=== PATIENT | female | born 1980 | race Caucasian/White ===

== ENCOUNTER 2021-01-29 15:26 | Emergency (ER) | payer BC ==
[2021-01-29 15:55] VITALS: TEMP 97.8; BMI 59.7
[2021-01-29] MEDS ORDERED: SODIUM CHLORIDE 1,000 ML IV STA (17:53)
[2021-01-29] MEDS ORDERED: ACETAMINOPHEN 1000 MG/100 ML VIAL IVPB ONE (17:57)
[2021-01-29] MEDS ORDERED: ACETAMINOPHEN INJECTION 100 ML IVPB ONE (18:10)
[2021-01-29 18:45] LABS: BASO % 0.8 % (0-2.0); EOS % 2.6 % (0-4.5); HEMATOCRIT 37.2 % (32.4-45.2); HEMOGLOBIN 12.2 GM/dL (10.7-15.3); LYMPH % 19.3 % (8-40); MCH 24.2 pg (25.7-33.7); MCHC 32.9 g/dl (32.0-36.0); MEAN CELL VOLUME 73.7 fl (80-96); MEAN PLT VOLUME 8.3 fl (7.5-11.1); MONO % 5.4 % (3.8-10.2); NEUT % 71.9 % (42.8-82.8); PLATELET COUNT 275 10^3/uL (134-434); RBC 5.05 M/mm3 (3.60-5.2); RDW 15.3 % (11.6-15.6); WHITE BLOOD COUNT 6.9 K/mm3 (4.0-10.0)
[2021-01-29 18:52] LABS: INR 0.97 (0.83-1.09); PROTHROMBIN TIME (PATIENT) 10.9 SEC (9.7-13.0)
[2021-01-29 18:54] LABS: ACTIVATED PTT 26.5 SECONDS (25.2-36.5)
[2021-01-29 19:05] LABS: CHLORIDE 106 mmol/L (98-107); SODIUM 139 mmol/L (136-145)
[2021-01-29 19:07] LABS: ALBUMIN 3.8 g/dl (3.4-5.0); ANION GAP 5 MMOL/L (8-16); BLOOD UREA NITROGEN 16.3 mg/dL (7-18); CALCIUM 9.1 mg/dL (8.5-10.1); CO2 28 mmol/L (21-32); GLUCOSE,RANDOM 97 mg/dL (74-106)
[2021-01-29 19:10] LABS: CREATININE 0.7 mg/dL (0.55-1.3); SGOT/AST 10 U/L (15-37); SGPT/ALT 18 U/L (13-61)
[2021-01-29 19:12] LABS: BILIRUBIN,TOTAL 0.3 mg/dL (0.2-1); TOT PROT 7.8 g/dl (6.4-8.2)
[2021-01-29 19:13] LABS: ALK PHOS 90 U/L (45-117)
[2021-01-29 19:15] LABS: N-TERMINAL BNP 66.3 pg/ml (5-125)
[2021-01-29] MEDS ORDERED: METOPROLOL TARTRATE 50 MG TABLET (FP) PO ONE (21:42)
[2021-01-29] MEDS ORDERED: METOPROLOL TARTRATE 50 MG TABLET (FP) ONE (22:13)
[2021-01-29 23:56] VITALS: BP 178/100; PULSE 67
== END 2021-01-29 23:56 | disposition home or self-care (01) ==
LOC: JER 15:26
PROC: 3E033NZ Introduction of Analgesics, Hypnotics, Sedatives into Peripheral Vein, Percutaneous Approach (ICD-10-PCS; principal; 2021-01-29)
PROC: 3E0337Z Introduction of Electrolytic and Water Balance Substance into Peripheral Vein, Percutaneous Approach (ICD-10-PCS; 2021-01-29)
DX: R07.9 Chest pain, unspecified (principal)
CPT/HCPCS: 36415; 71046-TC-FY; 71275-TC; 74174-TC; 80053; 82550; 83880; 84443; 84484; 84703; 85025; 85610; 85730; 93005; 93010; 99284-25; J0131; Q9967